=== PATIENT | male | born 1980 | race American Indian/Alaskan Native ===

== ENCOUNTER 2017-03-30 02:38 | Emergency (ER) | payer SELFPAY ==
[2017-03-30 05:28] VITALS: BP 107/56
== END 2017-03-30 05:25 | disposition left against medical advice (07) ==
LOC: ED 02:38
DX: F29 Unspecified psychosis not due to a substance or known physiological condition (principal); Z53.21 Procedure and treatment not carried out due to patient leaving prior to being seen by health care provider

== ENCOUNTER 2017-07-07 06:51 | Emergency (ER) | payer SELFPAY ==
[2017-07-07 07:20] VITALS: BP 116/74
== END 2017-07-07 07:55 | disposition left against medical advice (07) ==
LOC: ED 06:51
DX: R51 Headache (principal); Z53.21 Procedure and treatment not carried out due to patient leaving prior to being seen by health care provider

== ENCOUNTER 2017-07-17 02:31 | Emergency (ER) | payer SELFPAY ==
[2017-07-17 02:57] VITALS: BP 119/71
== END 2017-07-17 02:54 | disposition left against medical advice (07) ==
LOC: ED 02:31
DX: Z53.21 Procedure and treatment not carried out due to patient leaving prior to being seen by health care provider (principal)